=== PATIENT | male | born 1990 | race Caucasian/White ===

== ENCOUNTER 2017-02-06 11:22 | Emergency (ER) | payer SELFPAY ==
--- NOTE | 2017-02-06 12:37 | RAD ---
THREE VIEWS OF THE LEFT GREAT TOE: INDICATION: Skateboard injury. FINDINGS: No acute fracture or subluxation is evident. Joint spaces are preserved. There is soft tissue swel ling medial to the great toe MTP head. IMPRESSION: No acute osseous abnormality. POS: [facility]
== END 2017-02-06 13:33 | disposition home or self-care (01) ==
LOC: ERS 11:22
DX: S90.112A Contusion of left great toe without damage to nail, initial encounter (principal); L03.032 Cellulitis of left toe; G43.909 Migraine, unspecified, not intractable, without status migrainosus; F31.9 Bipolar disorder, unspecified; F90.9 Attention-deficit hyperactivity disorder, unspecified type; F17.210 Nicotine dependence, cigarettes, uncomplicated; W01.198A Fall on same level from slipping, tripping and stumbling with subsequent striking against other object, initial encounter

== ENCOUNTER 2017-03-10 06:50 | Emergency (ER) | payer SELFPAY ==
[2017-03-10] MEDS ORDERED: Adacel (T-DAP) 0.5 ML VIAL ONE (07:22)
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
== END 2017-03-10 08:07 | disposition home or self-care (01) ==
LOC: ERS 06:50
DX: S51.012A Laceration without foreign body of left elbow, initial encounter (principal); F90.9 Attention-deficit hyperactivity disorder, unspecified type; F17.210 Nicotine dependence, cigarettes, uncomplicated; V09.9XXA Pedestrian injured in unspecified transport accident, initial encounter; F31.9 Bipolar disorder, unspecified
CPT/HCPCS: 90471; 90715; 99406

== ENCOUNTER 2017-03-20 15:01 | Emergency (ER) | payer SELFPAY ==
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
[2017-03-20 16:18] LABS: #Basophils 0.1 thou/uL (0.0-0.2); #Eosinphils 0.2 thou/uL (0.0-0.7); #Lymphocytes 2.2 thou/uL (1.20-3.40); #Monocytes 0.7 thou/uL (0.11-0.59); #Neutrophils 6.4 thou/uL (1.40-6.50); %Basophils 0.8 % (0.0-1.0); %Eosinophils 1.7 % (0.0-10.0); %Lymphocytes 23.4 % (21.0-51.0); Hematocrit 48.5 % (42.0-52.0); Mean Platelet Volume 6.9 fL (7.4-10.4); Red Blood Cell (RBC) Count 5.15 mill/uL (4.70-6.10); White Blood Cell (WBC) Count 9.6 thou/uL (4.8-10.8)
[2017-03-20 16:35] LABS: ALT (SGPT) 14 U/L (8-55); AST (SGOT) 16 U/L (5-34); Alkaline Phosphatase 51 U/L (40-150); Anion Gap 12 mmol/L (10-20); BUN (Urea Nitrogen) 8 mg/dL (8.9-20.6); Bilirubin, Total 0.6 mg/dL (0.2-1.2); CK (CPK) 96 U/L (30-200); Calc. Creatinine Clearance 0 mL/min (70-130); Calcium 9.4 mg/dL (7.8-10.44); Carbon Dioxide 29 mmol/L (22-29); Chloride 106 mmol/L (98-107); Estimated GFR-MDRD Greater than 90; Globulin 2.8 g/dL (2.4-3.5); Protein, Total 7.1 g/dL (6.0-8.3)
== END 2017-03-20 16:52 | disposition home or self-care (01) ==
LOC: ERS 15:01
DX: M25.422 Effusion, left elbow (principal); F31.9 Bipolar disorder, unspecified; F90.9 Attention-deficit hyperactivity disorder, unspecified type; F17.210 Nicotine dependence, cigarettes, uncomplicated; G40.909 Epilepsy, unspecified, not intractable, without status epilepticus; Z71.6 Tobacco abuse counseling
CPT/HCPCS: 36415; 80053; 82550; 85025; 85652; 86140; 99406

== ENCOUNTER 2017-04-15 23:34 | Emergency (ER) | payer SELFPAY ==
[2017-04-16 00:54] LABS: #Basophils 0.1 thou/uL (0.0-0.2); #Eosinphils 0.2 thou/uL (0.0-0.7); #Lymphocytes 2.5 thou/uL (1.20-3.40); #Monocytes 0.7 thou/uL (0.11-0.59); #Neutrophils 4.8 thou/uL (1.40-6.50); %Eosinophils 1.9 % (0.0-10.0); %Lymphocytes 30.4 % (21.0-51.0); %Monocytes 7.9 % (0.0-10.0); Hematocrit 45.9 % (42.0-52.0); Red Blood Cell (RBC) Count 4.99 mill/uL (4.70-6.10); White Blood Cell (WBC) Count 8.2 thou/uL (4.8-10.8)
[2017-04-16 01:04] LABS: CK (CPK) 82 U/L (30-200)
[2017-04-16 01:06] LABS: ALT (SGPT) 12 U/L (8-55); AST (SGOT) 15 U/L (5-34); Acetaminophen Less than 6.0 mcg/mL (10.0-30.0); Alkaline Phosphatase 52 U/L (40-150); Anion Gap 12 mmol/L (10-20); BUN (Urea Nitrogen) 12 mg/dL (8.9-20.6); Bilirubin, Total 0.3 mg/dL (0.2-1.2); Calc. Creatinine Clearance 0 mL/min (70-130); Calcium 9.4 mg/dL (7.8-10.44); Carbon Dioxide 24 mmol/L (22-29); Chloride 107 mmol/L (98-107); Estimated GFR-MDRD Greater than 90; Globulin 2.9 g/dL (2.4-3.5); Salicylate Less than 8.0 mg/dL (15.0-30.0)
[2017-04-16 05:05] LABS: Acetaminophen Less than 6.0 mcg/mL (10.0-30.0)
[2017-04-16 07:28] LABS: Amphetamine Not Detected (NotDetected); Methadone Not Detected (NotDetected); Methamphetamine Not Detected (NotDetected)
== END 2017-04-16 08:02 | disposition home or self-care (01) ==
LOC: ERS 23:34
DX: S51.012A Laceration without foreign body of left elbow, initial encounter (principal); T43.212A Poisoning by selective serotonin and norepinephrine reuptake inhibitors, intentional self-harm, initial encounter; F31.9 Bipolar disorder, unspecified; F90.9 Attention-deficit hyperactivity disorder, unspecified type; F17.210 Nicotine dependence, cigarettes, uncomplicated; X58.XXXA Exposure to other specified factors, initial encounter
CPT/HCPCS: 36415; 80053; 80306; 80307; 82550; 84443; 85025; 93005

== ENCOUNTER 2018-05-01 04:50 | Emergency (ER) | payer SELFPAY | END 2018-05-01 08:44 | disposition home or self-care (01) | LOC: ERS 04:50 | DX: F10.129 Alcohol abuse with intoxication, unspecified (principal); Y90.6 Blood alcohol level of 120-199 mg/100 ml; G40.909 Epilepsy, unspecified, not intractable, without status epilepticus; F31.9 Bipolar disorder, unspecified; F90.9 Attention-deficit hyperactivity disorder, unspecified type; Z71.6 Tobacco abuse counseling; F17.210 Nicotine dependence, cigarettes, uncomplicated | CPT/HCPCS: 80307; 99406 ==

== ENCOUNTER 2019-05-16 10:35 | Emergency (ER) | payer SELFPAY | END 2019-05-16 11:39 | disposition left against medical advice (07) | LOC: ERS 10:35 | DX: Z53.21 Procedure and treatment not carried out due to patient leaving prior to being seen by health care provider (principal) ==